=== PATIENT | female | born 1980 | race Caucasian/White ===

== ENCOUNTER 2021-08-29 12:02 | Outpatient (CLI) | payer BC | END 2021-08-29 12:03 | disposition home or self-care (01) | LOC: BICMAMMO 12:02 | PROVIDERS: ATTEND Nurse Practitioner Family | DX: Z12.31 Encounter for screening mammogram for malignant neoplasm of breast (principal) | CPT/HCPCS: 77063; 77067 ==

== ENCOUNTER 2021-11-25 08:07 | Emergency (ER) | payer BC | END 2021-11-25 10:04 | disposition home or self-care (01) | LOC: ERS 08:07 | DX: R21 Rash and other nonspecific skin eruption (principal); E78.5 Hyperlipidemia, unspecified; Z20.822 Contact with and (suspected) exposure to COVID-19; Z87.19 Personal history of other diseases of the digestive system | CPT/HCPCS: 99283; U0003; U0005 ==

== ENCOUNTER 2021-12-04 08:12 | Emergency (ER) | payer OTHER, BC ==
[2021-12-04] MEDS ORDERED: Fentanyl 100 MCG/2 ML VIAL ONE (09:06)
[2021-12-04] MEDS ORDERED: Lorazepam 1 MG TAB ONE (09:11)
== END 2021-12-04 09:36 | disposition home or self-care (01) ==
LOC: ERS 08:12
DX: S29.012A Strain of muscle and tendon of back wall of thorax, initial encounter (principal); E78.5 Hyperlipidemia, unspecified; X50.0XXA Overexertion from strenuous movement or load, initial encounter; Y93.F2 Activity, caregiving, lifting; Y92.69 Other specified industrial and construction area as the place of occurrence of the external cause
CPT/HCPCS: 96372; 99283; J3010

== ENCOUNTER 2023-03-03 08:06 | Emergency (ER) | payer BC, SELFPAY ==
[2023-03-03] MEDS ORDERED: Ketorolac Tromethamine 30 MG/ML VIAL ONE (08:47)
[2023-03-03] MEDS ORDERED: Orphenadrine Citrate 60 MG/2 ML VIAL IM SCH (09:30)
[2023-03-03] MEDS ORDERED: Orphenadrine Citrate 100 MG ER.TAB ONE (09:49)
[2023-03-03] MEDS ORDERED: Orphenadrine Citrate 60 MG/2 ML VIAL ONE (09:50)
== END 2023-03-03 10:55 | disposition home or self-care (01) ==
LOC: ERS 08:06
DX: M54.50 Low back pain, unspecified (principal); M54.6 Pain in thoracic spine
CPT/HCPCS: 96372; 99283; J1885; J2360

== ENCOUNTER 2023-03-10 18:13 | Emergency (ER) | payer SELFPAY ==
[2023-03-10] MEDS ORDERED: Orphenadrine Citrate 60 MG/2 ML VIAL ONE (18:55)
[2023-03-10] MEDS ORDERED: Ketorolac Tromethamine 30 MG/ML VIAL ONE (18:56)
[2023-03-10] MEDS ORDERED: predniSONE 20 MG TAB ONE (20:37)
== END 2023-03-10 20:42 | disposition home or self-care (01) ==
LOC: ERS 18:13
DX: S39.012A Strain of muscle, fascia and tendon of lower back, initial encounter (principal); M54.32 Sciatica, left side; E78.5 Hyperlipidemia, unspecified; X50.0XXA Overexertion from strenuous movement or load, initial encounter
CPT/HCPCS: 96372; 99283; J1885; J2360; J7512

== ENCOUNTER 2025-01-05 07:00 | Outpatient (CLI) | payer OTHER | END 2025-01-05 07:01 | disposition home or self-care (01) | LOC: BICULT 07:00 | PROVIDERS: ATTEND Nurse Practitioner Family | DX: N92.6 Irregular menstruation, unspecified (principal); R53.82 Chronic fatigue, unspecified; R93.89 Abnormal findings on diagnostic imaging of other specified body structures; N85.8 Other specified noninflammatory disorders of uterus; N83.201 Unspecified ovarian cyst, right side | CPT/HCPCS: 76856 ==